=== PATIENT | male | born 1990 | race Caucasian/White ===

== ENCOUNTER 2021-08-30 14:41 | Emergency (ER) | payer BC, SELFPAY ==
[2021-08-30 15:00] VITALS: BP 131/78; PULSE 88; RESP 17; TEMP 37.1; O2SAT 98; BMI 39.9
--- NOTE | 2021-08-30 15:16 | HMH.EDUTC ---
[facility] [place] Clinical Impression: Left eye pain Disposition: Still a Patient Condition on Discharge: Good Instructions: DI for Eye Pain Referrals: Ted Michele [Primary Care Provider] - Time of Disposition: 15:20 (sent to ed for eval-report to silvana anderson) Medical Decision Making - Rodrigo Inquiry Pt receiving controlled substance: No Vital Signs: 08/30/21 15:00 Temperature 98.7 F Temperature Source Oral Pulse Rate [Right Brachial] 88 Respiratory Rate 17 Blood Pressure [Right Arm] 131/78 Blood Pressure Mean [Right Arm] 95 Blood Pressure Source [Right Arm] Automatic Cuff Blood Pressure Position [Right Arm] Sitting 02 Sat by Pulse Oximetry 98 Oxygen Delivery Method Room Air [facility] [place] - General Chief complaint: Urgent Treatment Center Stated complaint: rt eye swelling Time Seen by Provider: 08/30/21 15:16 Mode of Arrival: Ambulatory Source of Information: Patient Limitations: No Limitations Description of Symptoms (Recalled from Triage Doc. by RN): PATIENT STATES HE WAS SEEN BY PCP ON TUESDAY AND GIVEN DROPS FOR PINK EYE TO RIGHT EYE, BUT STATES IT IS NOT ANY BETTER HEENT Symptoms (Recalled from RN notes): Yes Resp Symptoms (Recalled from RN notes): No Skin Symptoms (Recalled from RN notes): No MS Symptoms (Recalled from RN notes): No Functional Status (Recalled from RN notes): WNL - History of Present Illness Provider Complaint: 31 yr old male presnets for rt eye pain. Pt states on he was doing yard work when he noticed his eye hurting and itching. pt states tuesday the eye seemed to worsen and he went to local urgent care and was given drop to use every 3 hours. pt states drops not helping and eye feels like he has something in eye under upper eye lid. - Related Data Previous Rx's Medication Instructions Recorded Azithromycin [Z-Chin 250mg Tab*] 250 mg PO UD DOSE PK #6 tab 02/15/19 Ondansetron [Zofran 4mg ODT] 4 mg PO Q8HP PRN #20 tab.rapdis 02/15/19 Oseltamivir Phosphate [Tamiflu 75 mg PO BID #10 cap 02/15/19 75mg Capsule] Allergies Allergy/AdvReac Type Severity Reaction Status Date / Time No Known Allergies Allergy Unverified 05/24/18 15:34 - Worker's Comp Is this a Worker's Comp case?: No [facility] History - Hepatitis A Screen Attestation statement:: This patient has been screened for Hepatitis A risk factors. I have reviewed the patient's past medical history: Yes Other Surgeries: Yes: No Previous Surgery - Social History Smoking Status: Never smoker Alcohol Intake: never Occupational Status: employed Housing: house Household Members: family Family Hx:: No significant family history ROS Obtained: Yes Systems reviewed as appropriate & no additional complaints - Constitutional Constitutional: Reports system reviewed and no additional complaints, except as docu, Denies fatigue - Eyes Eyes: Reports system reviewed and no additional complaints, except as docu, Reports as per HPI, Reports irritation, Reports other - ENT Ears, Nose, Mouth, and Throat: Reports system reviewed and no additional complaints, except as docu, Denies dizziness - Cardiovascular Cardiovascular: Reports system reviewed and no additional complaints, except as docu, Denies chest pain - Respiratory Respiratory: Reports system reviewed and no additional complaints, except as docu, Denies change in phlegm color - Gastrointestinal Gastrointestingal: Reports: system reviewed and no additional complaints, except as docu. Denies: abdominal pain - Genitourinary Male Genitourinary: Reports system reviewed and no additional complaints, except as docu - Musculoskeletal Musculoskeletal: Reports system reviewed and no additional complaints, except as docu, Denies joint pain - Integumentary/Breasts Skin/Breast: Reports system reviewed and no additional complaints, except as docu, Denies new lesions - Neurologic Neurologic: Reports system reviewed and no additional complaints, except as
--- NOTE | 2021-08-30 15:27 | PC.NURSE ---
Pt is 20/20 left eye and 20/40 with right eye.
[2021-08-30 15:33] VITALS: BP 128/97; PULSE 97; O2SAT 98
[2021-08-30 15:36] VITALS: BP 115/64; PULSE 65; RESP 18; O2SAT 98; BMI 39.8
[2021-08-30 15:45] VITALS: BP 115/64; PULSE 75; O2SAT 96
[2021-08-30 16:00] VITALS: BP 120/77; PULSE 75; O2SAT 96
--- NOTE | 2021-08-30 16:11 | HMH.EDGENADL ---
ED Disposition Clinical Impression: Conjunctivitis Qualifiers: Conjunctivitis type: acute Acute conjunctivitis type: unspecified Laterality: right Qualified Code(s): H10.31 - Unspecified acute conjunctivitis, right eye Disposition: Home, Self-Care Condition on Discharge: Good Instructions: DI for Eye Pain, DI for Conjunctivitis Additional Instructions: Discontinue polymyxin/TMP eyedrop. Start tobramycin eyedrop. Additional instructions for EYE PAIN or INJURY: Follow up with an eye doctor tomorrow. Call tomorrow morning to make arrangements to be seen tomorrow. Return to the emergency department if severe pain, loss of vision, pus drainage, severe swelling or redness of eyelids. Eye doctors: Dr. Milton, Dr. Rouse, Dr. Joon Busch [facility] [address] [place] [address] Prescriptions: Tobramycin [Tobrex opthalmic solution 5mL] 1 drp OP Q4HWA #5 ml Transmission Status: Pending to [facility]/pharmacy #[id number] Referrals: Ted Michele [Primary Care Provider] - Forms: Work/School Release - Critical Care Critical Care Time: No Attestation: On 08/30/21, the high probability of a clinically significant, sudden or life threatening deterioration of the following system(s) required my full and direct attention, intervention and personal management. The time I documented below is in addition to time spent performing reported procedures but includes the following listed in this critical care notation. Medical Decision Making - Rodrigo Inquiry Pt receiving controlled substance: No Vital Signs: 08/30/21 15:00 08/30/21 15:33 08/30/21 15:36 Temperature 98.7 F Temperature Source Oral Pulse Rate Pulse Rate [Right Brachial] 88 97 H 65 Respiratory Rate 17 18 Blood Pressure Blood Pressure [Right Arm] 131/78 128/97 H 115/64 Blood Pressure Mean Blood Pressure Mean [Right Arm] 95 107 81 Blood Pressure Source [Right Arm] Automatic Cuff Automatic Cuff Automatic Cuff Blood Pressure Position [Right Arm] Sitting Sitting Sitting 02 Sat by Pulse Oximetry 98 98 98 Oxygen Delivery Method Room Air Room Air Room Air 08/30/21 15:45 08/30/21 16:00 Temperature Temperature Source Pulse Rate 75 75 Pulse Rate [Right Brachial] Respiratory Rate Blood Pressure 115/64 120/77 Blood Pressure [Right Arm] Blood Pressure Mean 73 90 Blood Pressure Mean [Right Arm] Blood Pressure Source [Right Arm] Blood Pressure Position [Right Arm] 02 Sat by Pulse Oximetry 96 96 Oxygen Delivery Method General Adult HPI - General Chief complaint: Eye Problems Stated complaint: rt eye swelling Time Seen by Provider: 08/30/21 15:16 Mode of Arrival: Ambulatory Limitations: No Limitations Description of Symptoms (Recalled from ER Triage Doc. by RN): c/o right eye swelling,irritation. Thinks something is in his eye lid. PT was doing yard work ok when his eye started to bother him - History of Present Illness HPI narrative: States evening while in his yard he started getting an itching sensation of his right eye. The next morning he woke up with his right eye matting. He thought he might have pinkeye. He was seen at an urgent treatment center in [place] on Tuesday and prescribed polymyxin/TMP eyedrops. Since then he is worsening. He has gotten increasing redness and swelling. He now has some pain in his right that he describes as a foreign body sensation in the lower medial aspect of the eye/lower eyelid. No severe photophobia. No power tool or high-speed us tool use. He does not wear glasses or contact lenses. E - Related Data Previous Rx's Medication Instructions Recorded Azithromycin [Z-Chin 250mg Tab*] 250 mg PO UD DOSE PK #6 tab 02/15/19 Ondansetron [Zofran 4mg ODT] 4 mg PO Q8HP PRN #20 tab.rapdis 02/15/19 Oseltamivir Phosphate [Tamiflu 75 mg PO BID #10 cap 02/15/19 75mg Capsule] Tobramycin [Tobrex opthalmic 1 drp OP Q4HWA #5 ml 08/30/21
[2021-08-30 16:59] VITALS: BP 124/68; PULSE 61; RESP 18; TEMP 37.1; O2SAT 97
== END 2021-08-30 17:05 | disposition home or self-care (01) ==
LOC: UTC 15:20 → ER 15:21
PROVIDERS: Emergency Provider Emergency Medicine; PCP Family Medicine
DX: H10.31 Unspecified acute conjunctivitis, right eye (principal); S05.91XA Unspecified injury of right eye and orbit, initial encounter; Y93.H9 Activity, other involving exterior property and land maintenance, building and construction; Y92.096 Garden or yard of other non-institutional residence as the place of occurrence of the external cause
CPT/HCPCS: 99282